=== PATIENT | male | born 1955 | race Caucasian/White ===

== ENCOUNTER → 2024-05-12 | Outpatient (CLI) | payer BC, SELFPAY ==
--- NOTE | 2024-05-12 10:45 | XR_ITS ---
Examination:Right hip AP, lateral, AP pelvis 3 views Technique: Hip AP lateral, AP pelvis, 3 views Exam date and time:May 12, 2024 1120 hrs. Indications: Right hip pain beginning 1.5 years ago Findings: Moderate osteopenia. Mild to moderate osteoarthritis right and left hip joints No right or left hip fracture or dislocation Bones of the pelvis intact Impression: Mild to moderate bilateral hip osteoarthritis.
[2024-05-12 11:01] LABS: Basophils % (Auto) 0 % (0-2.5); Eosinophils # (Auto) 0.2 Thou/mm3 (0.0-0.5); Eosinophils % (Auto) 3 % (0-10); Hematocrit 42.4 % (41.0-53.0); Hemoglobin 14.9 g/dL (13.5-16.0); Immature Granulocytes % (Auto) 0 % (0-0); Immature Granulocytes Auto 0.02 Thou/mm3 (0.00-0.00); Lymphocytes # (Auto) 2.2 Thou/mm3 (1.0-4.8); Lymphocytes % (Auto) 35 % (10-50); Mean Corpuscular HGB Conc 35.1 g/dl (31.0-37.0); Mean Corpuscular Hemoglobin 32.7 pg (25.0-35.0); Mean Corpuscular Volume 93 fL (80-100); Monocytes # (Auto) 0.7 Thou/mm3 (0.0-0.8); Monocytes % (Auto) 11 % (0-12); Neutrophils # (Auto) 3.2 Thou/mm3 (1.8-7.7); Neutrophils % (Auto) 51 % (37-80); Nucleated Red Blood Cell % 0 /100 WBC (0); Platelet Count 186 Thou/mm3 (140-440); RDW Standard Deviation 41.8 fL (35.1-43.9); Red Blood Count 4.56 Miln/mm3 (4.50-5.90); White Blood Count 6.3 Thou/mm3 (3.8-10.6)
[2024-05-12 11:51] LABS: Glucose Estimated Average 120 mg/dL (80-131); Hemoglobin A1C 5.8 % Hgb (4.8-6.0)
[2024-05-12 11:56] LABS: PSA Medicare Annual Scrn 0.87 ng/mL (0-4.00)
[2024-05-12 12:10] LABS: Alanine Aminotransferase 32 U/L (10-49); Albumin, Serum 4.2 gm/dL (3.4-4.8); Albumin/Globulin Ratio 1.7 (1.2-2.2); Alkaline Phosphatase 64 U/L (46-116); Anion Gap 7 (7-16); Aspartate Amino Transferase 25 U/L (0-34); BUN/Creatinine Ratio 15 Ratio (12-20); Bilirubin,Total 0.6 mg/dL (0.3-1.2); Blood Urea Nitrogen 15 mg/dL (9-23); Calcium 9.8 mg/dL (8.3-10.6); Calcium (Corrected) 9.8 mg/dL (8.5-10.1); Carbon Dioxide 29.2 mMol/L (20.0-31.0); Chloride 106 mMol/L (98-107); Globulin 2.5 gm/dL (2.3-3.5); Glucose 103 mg/dL (74-106); Osmolality,Calculated 283 (275-295); Potassium 4.8 mMol/L (3.4-5.1); Sodium 142 mMol/L (136-145); Thyroid Stimulating Hormone 2.12 uIU/mL (0.55-4.78); Total Protein 6.7 gm/dL (5.7-8.2); eGFR > 60 See Note
[2024-05-12 12:22] LABS: Cardiac Risk Estimate 5.4 RATIO (4.0-6.7); Cholesterol 162 mg/dL (132-200); HDL Cholesterol 30 mg/dL (40-60); LDL Cholesterol,Calculated 99 mg/dL (0-130); Triglycerides 164 mg/dL (30-150)
== END | disposition home or self-care (01) ==
LOC: CDIM 10:30 → COPL 10:32
PROVIDERS: PCP Family Medicine; Referring Provider Internal Medicine; Visit Provider Internal Medicine
DX: N40.1 Benign prostatic hyperplasia with lower urinary tract symptoms (principal); G47.30 Sleep apnea, unspecified; M16.0 Bilateral primary osteoarthritis of hip; Z82.49 Family history of ischemic heart disease and other diseases of the circulatory system; Z83.3 Family history of diabetes mellitus
CPT/HCPCS: 36415; 73502; 80053; 80061; 83036; 84153; 84443; 85025; G0103

== ENCOUNTER → 2024-09-13 | Outpatient (CLI) | payer BC, SELFPAY ==
--- NOTE | 2024-09-13 13:30 | XR_ITS ---
Examination: CT abdomen and pelvis without contrast. Coronal 3-D reconstructions. Sagittal 2-D reconstructions. Date and time of exam:September 13, 2024 1351 hours INDICATIONS: Generalized abdominal pain 6 months CTDI: vol (mGy): 15.1 DLP: (mGycm): 1048 Technique: Axial images of the abdomen have been obtained, 3 mm slice thickness Intravenous contrast material has not been administered. Low dose protocols were performed. One or more of the following dose reduction techniques were used; automated exposure control, adjustment of the mA and/or KV according to patient size, use of iterative reconstruction technique. Findings: No focal liver or splenic lesions No gallstones No pancreatic or adrenal mass Mild renal parenchymal scar formation No renal or ureteral calculi, no hydronephrosis 19 mm mass at the posterior margin right kidney No aneurysmal dilatation abdominal aorta No bowel obstruction Normal appendix Colonic diverticulosis, no diverticulitis Normal seminal vesicles No prostatomegaly Intact urinary bladder Moderate osteopenia IMPRESSION: Recommend renal sonography to assess 19 mm mass at the posterior margin right kidney
--- NOTE | 2024-09-13 13:30 | XR_ITS ---
Examination: CT chest, without intravenous contrast. Sagittal and coronal 2-D reconstructions. Exam date and time: September 13, 2024 1351 hours INDICATIONS: Smoking history 50 years, 9 mm pulmonary nodule left lower lobe on CT chest May 28, 2021 CTDI:vol (mGy) 22.2 DLP: (mGycm) 992 Technique: Multiple 3.0 mm axial sections of the chest to been obtained. Bone and lung density settings are obtained. Sagittal and coronal 2-D reconstructions have been obtained. Low dose protocols were performed. One or more of the following dose reduction techniques were used; automated exposure control, adjustment of the mA and/or KV according to patient size, use of iterative reconstruction technique. Findings: No thoracic aortic aneurysm dilatation Pulmonary artery segments are not enlarged Mild calcification left anterior descending coronary artery No paratracheal tracheobronchial or bronchopulmonary adenopathy Stable 9 mm pulmonary nodule left lower lobe No new pulmonary nodules No pneumonia or pulmonary edema No visualized liver or splenic lesion No gallstones Moderate thoracic spondylosis IMPRESSION: Stable 9 mm pulmonary nodule left lower lobe, no new pulmonary nodules
== END | disposition home or self-care (01) ==
LOC: CCTX 13:30
PROVIDERS: Referring Provider Internal Medicine; Visit Provider Internal Medicine
DX: Z12.2 Encounter for screening for malignant neoplasm of respiratory organs (principal); Z13.6 Encounter for screening for cardiovascular disorders; N28.89 Other specified disorders of kidney and ureter; R91.1 Solitary pulmonary nodule
CPT/HCPCS: 71271; 74176

== ENCOUNTER → 2024-09-20 | Outpatient (CLI) | payer MEDICARE, SELFPAY ==
--- NOTE | 2024-09-20 10:12 | XR_ITS ---
Examination: Retroperitoneal ultrasound, complete Technique: Multiple high resolution grayscale images of the retroperitoneum obtained, including kidneys and bladder. Exam date and time:September 20, 2024 1021 hours INDICATIONS: 19 mm mass posterior margin right kidney on CT abdomen September 13, 2024 FINDINGS: Right kidney 13.1 cm cortex 1.7 cm Lower pole cyst 14 x 14 mm No solid renal mass lesion Left kidney 13.6 cm cortex 2.4 cm Moderate renal parenchymal scar formation No bladder mass or bladder calculi. Bladder prevoid volume 309 cc Prostate not enlarged no prostate nodules IMPRESSION: Lower pole right renal cyst 14 x 10 x 14 mm, no solid renal mass lesion
== END | disposition home or self-care (01) ==
LOC: CDIM 10:05
PROVIDERS: PCP Internal Medicine; Referring Provider Internal Medicine; Visit Provider Internal Medicine
DX: N28.1 Cyst of kidney, acquired (principal)
CPT/HCPCS: 76770

== ENCOUNTER → 2025-02-07 | Outpatient (CLI) | payer MEDICARE, SELFPAY ==
--- NOTE | 2025-02-07 11:22 | EKG_ITS ---
[facility] (Formerly [facility])[3] Test Date: 2025-02-07 Pat Name: JEROMY HAMILTON Department: Room: - Gender: Male Otolaryngology Physician: OR : 1955 Requested By: Adiel Wang Order Number: [id number] Reading MD: Adiel Wagn Measurements Intervals [place] Rate: 60 P: 61 DC: 181 QRS: -61 QRSD: 91 T: 80 QT: 409 QTc: 411 Interpretive Statements SINUS RHYTHM WITH SINUS ARRHYTHMIA PATTERN CONSISTENT WITH PULMONARY DISEASE LEFT ANTERIOR FASCICULAR BLOCK [QRS AXIS <= -45, QR IN I, RS IN II] No previous ECG available for comparison /[id number]
[2025-02-07 11:45] LABS: Basophils # (Auto) 0.0 Thou/mm3 (0.0-0.2); Basophils % (Auto) 0 % (0-2.5); Eosinophils # (Auto) 0.3 Thou/mm3 (0.0-0.5); Eosinophils % (Auto) 4 % (0-10); Hematocrit 45.1 % (41.0-53.0); Hemoglobin 15.7 g/dL (13.5-16.0); Immature Granulocytes Auto 0.02 Thou/mm3 (0.00-0.00); Lymphocytes # (Auto) 2.3 Thou/mm3 (1.0-4.8); Lymphocytes % (Auto) 31 % (10-50); Mean Corpuscular HGB Conc 34.8 g/dl (31.0-37.0); Mean Corpuscular Hemoglobin 32.6 pg (25.0-35.0); Mean Corpuscular Volume 94 fL (80-100); Monocytes # (Auto) 0.9 Thou/mm3 (0.0-0.8); Monocytes % (Auto) 12 % (0-12); Neutrophils # (Auto) 3.8 Thou/mm3 (1.8-7.7); Neutrophils % (Auto) 52 % (37-80); Nucleated Red Blood Cell # 0.00 Thou/mm3 (0.00-0.00); Nucleated Red Blood Cell % 0 /100 WBC (0); Platelet Count 194 Thou/mm3 (140-440); RDW Standard Deviation 41.9 fL (35.1-43.9); Red Blood Count 4.81 Miln/mm3 (4.50-5.90); White Blood Count 7.4 Thou/mm3 (3.8-10.6)
[2025-02-07 12:05] LABS: Alanine Aminotransferase 23 U/L (10-49); Albumin, Serum 4.5 gm/dL (3.4-4.8); Albumin/Globulin Ratio 2.0 (1.2-2.2); Anion Gap 8 (7-16); Aspartate Amino Transferase 21 U/L (0-34); BUN/Creatinine Ratio 8 Ratio (12-20); Bilirubin,Total 0.7 mg/dL (0.3-1.2); Blood Urea Nitrogen 9 mg/dL (9-23); Calcium 9.7 mg/dL (8.3-10.6); Calcium (Corrected) 9.7 mg/dL (8.5-10.1); Carbon Dioxide 29.1 mMol/L (20.0-31.0); Chloride 104 mMol/L (98-107); Creatinine (Component) 1.1 mg/dL (0.6-1.3); Globulin 2.3 gm/dL (2.3-3.5); Glucose 105 mg/dL (74-106); Osmolality,Calculated 279 (275-295); Potassium 4.9 mMol/L (3.4-5.1); Sodium 141 mMol/L (136-145); Total Protein 6.8 gm/dL (5.7-8.2); eGFR > 60 See Note
[2025-02-07 12:35] LABS: Alkaline Phosphatase 61 U/L (46-116)
== END | disposition home or self-care (01) ==
PROVIDERS: PCP Internal Medicine; Referring Provider Orthopaedic Surgery; Visit Provider Orthopaedic Surgery
DX: M25.851 Other specified joint disorders, right hip (principal)
CPT/HCPCS: 36415; 80053; 85025; 93005